=== PATIENT | male | born 1975 | race Caucasian/White ===

== ENCOUNTER 2016-12-30 13:27 | Emergency (ER) | payer MEDICAID ==
[~2016-12-30] VITALS: Ht 177.8 cm; Wt 72.7 kg
[2016-12-30 14:38] LABS: BASOPHILS # (AUTO) 0.02 K/uL (0.00-0.20); BASOPHILS % (AUTO) 0.3 % (0.0-2.0); EOSINOPHILS # (AUTO) 0.29 K/uL (0.00-0.70); EOSINOPHILS % (AUTO) 4.49 % (1.0-6.0); HEMATOCRIT 37.6 % (41-53); HEMOGLOBIN 12.8 g/dL (13.5-17.5); LYMPHOCYTES # (AUTO) 1.8 K/uL (1.0-4.8); LYMPHOCYTES % (AUTO) 27.5 % (22.0-44.0); MEAN CORPUSCULAR VOLUME 94 fL (80-100); MONOCYTES # (AUTO) 0.6 K/uL (0.1-1.0); MONOCYTES % (AUTO) 8.5 % (2.0-9.0); NEUTROPHILS # (AUTO) 3.9 K/uL (1.8-7.7); NEUTROPHILS % (AUTO) 59.2 % (40.0-70.0); PLATELET COUNT (AUTO) 268 K/uL (150-450); WHITE BLOOD COUNT (AUTO) 6.6 K/uL (4.5-11.0)
[2016-12-30 14:51] LABS: ANION GAP 7 mmol/L (8-16); CALCIUM, TOTAL 8.4 mg/dL (8.8-10.5); CARBON DIOXIDE 30 mmol/L (22-29); CHLORIDE 106 mmol/L (98-107); CREATININE 1.01 mg/dL (0.60-1.30); GLOMERULAR FILTR. RATE CALC > 60 mL/min (>60); SODIUM SERUM 143 mmol/L (136-145); UREA NITROGEN, BLOOD 10 mg/dL (7-18)
[2016-12-30 14:57] LABS: ALANINE AMINOTRANSFERASE 25 U/L (12-78); ALBUMIN 3.8 g/dL (3.4-5.0); ASPARTATE AMINOTRANSFERASE 17 U/L (15-37); BILIRUBIN,TOTAL 0.5 mg/dL (0.1-1.0); TOTAL PROTEIN, SERUM 6.2 g/dL (6.4-8.2)
[2016-12-30] MEDS ORDERED: LORazepam 1 MG TABLET PO ONE (16:45)
[2016-12-30 17:30] VITALS: BP 122/82
[2016-12-30] MEDS ORDERED: BACITRACIN 0.9 GM PACKET OINTMENT TP ONE (17:35)
== END 2016-12-30 17:38 | disposition home or self-care (01) ==
LOC: EMS 13:32
DX: F41.9 Anxiety disorder, unspecified (principal); F15.10 Other stimulant abuse, uncomplicated; F17.210 Nicotine dependence, cigarettes, uncomplicated
CPT/HCPCS: 36415; 80053; 80307; 85025; 99284; G0480

== ENCOUNTER 2025-03-19 11:35 | Emergency (ER) | payer MEDICAID, OTHER ==
[~2025-03-19] VITALS: Ht 175.3 cm; Wt 81.8 kg
[2025-03-19 11:36] VITALS: TEMP 98.1
[2025-03-19] MEDS: KETOROLAC TROMETHAMINE 30 MG/ML VIAL IM ONE (11:59)
[2025-03-19] MEDS: LIDOCAINE 5% TRANSDERMAL PATCH TD ONE (12:00)
[2025-03-19] MEDS ORDERED: LIDO-57 TP (12:11)
[2025-03-19] MEDS ORDERED: IBUP-1492 PO (12:11)
[2025-03-19] MEDS ORDERED: ACET-3385 PO (12:11)
[2025-03-19 13:10] VITALS: BP 122/65; PULSE 72; RESP 18; O2SAT 98
== END 2025-03-19 13:59 | disposition home or self-care (01) ==
LOC: EMS 11:43
DX: M54.12 Radiculopathy, cervical region (principal); F32.A Depression, unspecified; F41.9 Anxiety disorder, unspecified; R20.2 Paresthesia of skin; Z87.891 Personal history of nicotine dependence; X50.0XXA Overexertion from strenuous movement or load, initial encounter
CPT/HCPCS: 99283; 73030; 96372; J1885